=== PATIENT | male | born 2000 | race Caucasian/White ===

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

== ENCOUNTER 2019-01-27 03:23 | Emergency (ER) | payer SELFPAY ==
[~2019-01-27] VITALS: Ht 154.9 cm; Wt 71.4 kg
[2019-01-27 03:27] VITALS: Ht 154.9 cm; Wt 71.4 kg
[2019-01-27] MEDS ORDERED: IBUPROFEN 600 MG TAB PO ONE (04:30)
[2019-01-27] MEDS ORDERED: IBUP-1542 PO (04:52)
--- NOTE | 2019-01-27 05:00 | ERD ---
ER Documentation Chief Complaint Chief Complaint left hip pain; hx metal plate fr accident 2 y ago HPI Patient is a 18-year-old male, status post ORIF to left femur 2 months ago, presents the ER for concerns of "total body" pain and left hip pain x4 hours. Patient states he is having pain throughout his body, however more in his lower back and his left hip. Patient states he is not able to sleep. Patient denies falls or trauma. Patient denies any fevers or chills. Patient denies any exertional activities. Patient is not taking any pain medication for symptoms. Patient denies any saddle seizure, urine incontinence, stool incontinence, hematuria. ROS All systems reviewed and are negative except as per history of present illness. Medications Home Meds Active Scripts Ibuprofen* (Motrin*) 600 Mg Tab, 600 MG PO Q6, #30 TAB Prov:JESSICA GARAY PA-C 01/27/19 Ibuprofen* (Motrin*) 600 Mg Tab, 600 MG PO Q6, #30 TAB Prov:TEGAN GARY PA-C 01/12/17 Acetaminophen* (Tylenol*) 325 Mg Tablet, 650 MG PO Q4H PRN for FEVER, #30 TAB Prov:RODNEY VELASQUEZ MD 11/05/15 Ibuprofen* (Motrin*) 600 Mg Tab, 600 MG PO Q6H PRN for FEVER, #20 TAB Prov:RODNEY VELASQUEZ MD 11/05/15 Allergies Allergies: Coded Allergies: No Known Allergy (Unverified , 03/18/12) PMhx/Soc History of Surgery: Yes (LEFT THIGH SURGERY 08/17) Anesthesia Reaction: No Hx Neurological Disorder: No Hx Respiratory Disorders: No Hx Cardiac Disorders: No Hx Psychiatric Problems: No Hx Miscellaneous Medical Probl: No Hx Alcohol Use: No Hx Substance Use: No Hx Tobacco Use: No Smoking Status: Never smoker FmHx Family History: No diabetes Physical Exam Vitals Vital Signs Date Temp Pulse Resp B/P (MAP) Pulse Ox O2 O2 Flow FiO2 Time Delivery Rate 01/27/19 99.4 97 20 146/101 98 03:27 (116) Physical Exam GENERAL: Well-developed, well-nourished male. Appears in no acute distress. HEAD: Normocephalic, atraumatic. EYES: Pupils are equally reactive bilaterally. EOMs grossly intact. No conjunctival erythema. ENT: Moist mucous membranes. No uvula deviation. No kissing tonsils. NECK: Supple. No meningismus. Normal range of motion of the neck. LUNG: Clear to auscultation bilaterally. No rhonchi, wheezing, rales or coarse breath sounds. HEART: Regular rate and rhythm. No murmurs, rubs or gallops. BACK: No midline tenderness. Tender to palpation of bilateral lumbar paraspinal muscles. LEFT HIP: Previous surgical sites appear to have healed well.. No obvious deformity, warmth, swelling or redness noted. Able to externally and internally rotate without any difficulty. Steady gait. EXTREMITIES: Equal pulses bilaterally. No peripheral clubbing, cyanosis or edema. No unilateral leg swelling. NEUROLOGIC: Alert and oriented. Moving all four extremities without any diffic ulty. Normal speech. Steady gait. SKIN: Normal color. Warm and dry. No rashes or lesions. Results 24 hrs Current Medications Medications Dose Sig/Kiesha Start Time Status Last (Trade) Ordered Route PRN Stop Time Admin Dose Reason Admin Ibuprofen 600 mg ONCE ONCE 01/27/19 DC 01/27/19 (Motrin) PO 04:30 04:16 01/27/19 04:31 Procedures/MDM MEDICAL DECISION MAKING: Patient is a 18-year-old male who presents the ER for concerns of "total body pain and left hip pain x4 hours. . Vital signs were reviewed. Patient is afebrile. Patient was not hypoxic. Patient was hemodynamically stable. Patient is able to ambulate without any difficulty. Patient denied any falls or trauma. Low suspicion for fracture or dislocation. Patient denied any exertional activities or hematuria. Low suspicion for rhabdomyolysis. Low suspicion for septic joint because patient has no fevers, redness, swelling to the affected area. Patient was nontoxic, [id number] prior to discharge. PRESCRIPTION: Ibuprofen DISCHARGE: At this time, patient is stable for discharge and outpatient management. I have instructed the patient to follow-up with his/her primary care physician in 1-2 days. I have discussed with the patient the possibility of needing to see a specialist for further workup and imaging studies if symptoms persist. I have i nstructed the patient to promptly return to the ER for any new or worsening symptoms including increased pain, fever, nausea, vomiting, weakness or LOC. The patient and/or family expressed understanding of and agreement with this plan. All questions were answered. Home care instructions were provided. Disclaimer: Inadvertent spelling and grammatical errors are likely due to EHR/d ictation software use and do not reflect on the overall quality of patient care. Also, please note that the electronic time recorded on this note does not necessarily reflect the actual time of the patient encounter. Departure Diagnosis: Primary Impression: Total body pain Additional Impression: Hip pain Laterality: left Qualified Codes: M25.552 - Pain in left hip Condition: Fair Patient Instructions: Possible Causes of Low Back or Leg Pain Referrals: COMMUNITY CLINICS YOU HAVE RECEIVED A MEDICAL SCREENING EXAM AND THE RESULTS INDICATE THAT YOU DO NOT HAVE A CONDITION THAT REQUIRES URGENT TREATMENT IN THE EMERGENCY DEPARTMENT. FURTHER EVALUATION AND TREATMENT OF YOUR CONDITION CAN WAIT UNTIL YOU ARE SEEN IN YOUR DOCTORS OFFICE WITHIN THE NEXT 1-2 DAYS. IT IS YOUR RESPONSIBILITY TO MAKE AN APPOINTMENT FOR FOLOW-UP CARE. IF YOU HAVE A PRIMARY DOCTOR --you should call your primary doctor and schedule an appointment IF YOU DO NOT HAVE A PRIMARY DOCTOR YOU CAN CALL OUR PHYSICIAN REFERRAL HOTLINE AT IF YOU CAN NOT AFFORD TO SEE A PHYSICIAN YOU CAN CHOSE FROM THE FOLLOWING [facility] [address] [facility]. [facility] [address] [facility]. [facility] [address] [facility]. [facility] [address] [facility]. [facility] [address] [facility]. [facility]. [address] [facility]. [facility] YOU HAVE RECEIVED A MEDICAL SCREENING EXAM AND THE RESULTS INDICATE THAT YOU DO NOT HAVE A CONDITION THAT REQUIRES URGENT TREATMENT IN THE EMERGENCY DEPARTMENT. FURTHER EVALUATION AND TREATMENT OF YOUR CONDITION CAN WAIT UNTIL YOU ARE SEEN IN YOUR DOCTORS OFFICE WITHIN THE NEXT 1-2 DAYS. IT IS YOUR RESPONSIBILITY TO MAKE AN APPOINTMENT FOR FOLOW-UP CARE. IF YOU HAVE A PRIMARY DOCTOR --you should call your primary doctor and schedule and appointment IF YOU DO NOT HAVE A PRIMARY DOCTOR YOU CAN CALL OUR PHYSICIAN REFERRAL HOTLINE AT . IF YOU CAN NOT AFFORD TO SEE A PHYSICIAN YOU CAN CHOSE FROM THE FOLLOWING [facility] INSTITUTIONS: [facility] [address] [place] [address] [facility] [address] [place] [address] [facility] [address] [place] [address] Additional Instructions: Call your primary care doctor TOMORROW for an appointment during the next 1-2 days.See the doctor sooner or return here if your condition worsens before your appointment time. JESSICA GARAY PA-C Jan 27, 2019 05:00
== END 2019-01-27 05:24 | disposition left against medical advice (07) ==
LOC: FTE 03:23
DX: M25.552 Pain in left hip (principal)
CPT/HCPCS: 99282